=== PATIENT | male | born 1955 | race Caucasian/White ===

== ENCOUNTER 2019-01-08 05:09 | Day surgery (SDC) | payer OTHER ==
[~2019-01-08] VITALS: Ht 177.8 cm; Wt 74.1 kg
--- NOTE | ~2019-01-08 | OP ---
PATIENT NAME: EDDI OROZCO MEDICAL RECORD: [id number] :53 LOCATION:D.FORMERLY [facility] ADMISSION DATE: SURGEON: ELIESER VALENTINO MD DATE OF OPERATION: 01/08/2019 PREOPERATIVE DIAGNOSES: 1. Symptomatic ventral hernia. 2. Hepatitis C. 3. History of ascites. 4. History of paracenteses. 5. Esophageal varices by EGD with worrisome sign such as suzette and red signs. 6. Grade IV esophageal varices. 7. Recent hematemesis. POSTOPERATIVE DIAGNOSES: 1. Incarcerated symptomatic ventral hernia. 2. History of hepatitis C. 3. History of ascites. 4. Recent hematemesis. 5. Recent history of an EGD which revealed worrisome signs such as suzette and red signs. PROCEDURES: 1. Open incarcerated ventral hernia repair without mesh. 2. EGD with banding of esophageal varices with 9 bands. SURGEON: Elieser Valentino MD ADMISSIONS OFFICER: None. BLOOD LOSS: Minimal. ANESTHESIA: General. COMPLICATIONS: None. The risks, possible complications and alternatives to the procedure were explained to the patient. He elects to proceed. The discussion specifically included, but was not limited to, bleeding requiring emergency reoperation, infection, variceal bleeding, leakage of ascites from the herniorrhaphy. This was a qrrz-suow-wxral type of repair. OPERATIVE COURSE: The patient was conveyed to the operating room electively on 01/08/2019. General anesthesia was induced by the anesthesia staff. The abdomen was sterilely prepped and draped. I incised through the umbilical skin. I had to remove some of the umbilical skin to allow for a stable skin closure at the end of the procedure. There was incarcerated omentum. This was released with the electrocautery. I then sharply cleaned connective tissue from around the hernia defect. Utilizing a zkru-jjjw-xpdks type repair with 0 Surgidac sutures, I performed the herniorrhaphy with 2 of these sutures. I then overran the suture line with a running horizontal mattress 0 Vicryl suture. The umbilical skin was approximated with interrupted 3-0 Vicryls for the deep dermis as well as interrupted 3-0 Vicryl Cameron for the skin. A sterile dressing was then applied. OPERATIVE REPORT [id number] EDDI OROZCO Attention was then turned to the endoscopic procedure. A bite block was inserted. A gastroscope was inserted into the mouth. It was advanced easily into the hypopharynx. The esophagus was easily intubated as were the stomach and duodenum. Upon withdrawal, retroflexed and angulus views were obtained. I then slowly withdrew the endoscope. I then loaded an endoscopic banding device. I advanced it down the esophagus. The more worrisome varices were then banded, a total of 6 of the 7 bands were stable on varices and 1 band was lost. I then withdrew the gastroscope, another band was applied. I intubated the esophagus again. Three more bands were placed. There was very little bleeding. The endoscope was then withdrawn under direct vision. I want to keep the patient in the hospital overnight to watch for bleeding. TRANSINT:[id number] Voice Confirmation ID: [id number] DOCUMENT ID: [id number] ELIESER VALENTINO MD CC: SASHA RUBIO MD, ELIESER AWAN MD, MUKESH CINTRON MD and [id number] L DICTATION DATE: 01/08/19 1108 CORPORATE SERVICES MANAGER: 01/08/19 1207 [facility] 01/09/19 [id number] [place] [address]
[2019-01-08] MEDS ORDERED: ALDACTONE50 MG PO (05:44)
[2019-01-08] MEDS ORDERED: OMEPRAZOLE40 MG PO (05:45)
[2019-01-08 05:46] VITALS: BP 111/63; BMI 23.7
[2019-01-08 05:59] LABS: BASOPHILS 0.4 % (0-2); EOSINOPHILS 5.5 % (0-7); HEMATOCRIT 28.1 % (42.0-54.0); HEMOGLOBIN 8.7 g/dL (13.5-17.5); LYMPHOCYTES 14.8 % (15-50); MCH 20.8 pg (26.0-34.0); MCV 67.2 fL (80.0-100.0); MONOCYTES 12.2 % (2-11); NEUTROPHILS 67.1 % (40-80); PLATELET COUNT 58 10x3/uL (130-400); RBC 4.18 10x6/uL (4.20-6.10); RDW 19.2 % (11.5-14.5); WBC 2.7 10x3/uL (4.8-10.8)
[2019-01-08 06:04] LABS: APTT 36.6 SECONDS (22.8-39.4); INR 1.34 (0.85-1.17)
[2019-01-08 06:11] LABS: ALBUMIN 3.2 g/dL (3.4-5.0); ALKALINE PHOSPHATASE 213 U/L (46-116); ALT (SGPT) 29 U/L (10-68); BILIRUBIN - TOTAL 0.28 mg/dL (0.2-1.3); CALC OSMOLALITY 280 mosm/kg (275-300); CALCIUM 7.8 mg/dL (8.5-10.1); CARBON DIOXIDE 23.2 mmol/L (21.0-32.0); CHLORIDE - SERUM 107 mmol/L (98-107); CREATININE - SERUM 0.9 mg/dL (0.6-1.3); GLUCOSE 106 mg/dL (74-106); POTASSIUM - SERUM 3.7 mmol/L (3.5-5.1); PROTEIN - SERUM 8.1 g/dL (6.4-8.2); SODIUM 141 mmol/L (136-145); UREA NITROGEN 13 mg/dL (7-18); eGFR NON AFRICAN AMERICAN 90 mL/min (90-120)
[2019-01-08 08:50] LABS: PLATELET ESTIMATE DECREASED
[2019-01-08 08:51] LABS: HYPOCHROMASIA OCC
--- NOTE | 2019-01-08 12:01 | NUR ---
I NOTIFIED CARLTON CRUZ RN AT 1115 REGARDING NEEDING AN OBSERVATION BED. PATIENT WILL BE ADMITTED FOR OVERNIGHT OBSERVATION PER DR VALENTINO.
--- NOTE | 2019-01-08 12:03 | NUR ---
AT 1123 NOTIFIED BY CARLTON CRUZ RN OF PATIENT'S ROOM NUMBER #[id number]. WILL COTONUE TO MONITOR.
--- NOTE | 2019-01-08 12:04 | NUR ---
AT 115O SPOKE WITH LESA RN MED/SURG NURSE AND GAVE HER REPORT. AT THE END OF REPORT SHE ADVISED ME THAT THE ROOM WAS NO READY AND THAT EVS WAS CLEANING IT. I THEN PLACED PATIENT IN PHASE 2 IN PACU. WILL CONTINUE TO MONITOR.
--- NOTE | 2019-01-08 12:06 | NUR ---
AT 1155 CALLED DAYRON WILKINS GLAZE GRINDER AND INFORMED HIM OF THE STAT CLEAN I NEEDED ON ROOM 2203. HE INFORMED ME THAT DYLAN, LEARNING SUPPORT SPECIALIST JUST CONTACTED HIM AND INFORMED HIM THAT SHE NEEDED A STAT CLEAN ON ROOM 2203. INFORMED CARLTON CRUZ RN OF THE ABOVE. WILL CONTINUE TO MONITOR PATIENT IN PACU.
[2019-01-08 12:43] VITALS: BP 117/63
[2019-01-08 14:30] VITALS: Ht 177.8 cm; Wt 74.1 kg
[2019-01-08 20:00] VITALS: BP 116/53
[2019-01-08 23:35] VITALS: BP 118/60
[2019-01-09 03:00] VITALS: BP 132/56
[2019-01-09 06:56] LABS: ALBUMIN 3.1 g/dL (3.4-5.0); ALKALINE PHOSPHATASE 201 U/L (46-116); ALT (SGPT) 24 U/L (10-68); BILIRUBIN - TOTAL 0.52 mg/dL (0.2-1.3); CALC OSMOLALITY 276 mosm/kg (275-300); CALCIUM 7.4 mg/dL (8.5-10.1); CARBON DIOXIDE 23.1 mmol/L (21.0-32.0); CHLORIDE - SERUM 104 mmol/L (98-107); GLUCOSE 96 mg/dL (74-106); PHOSPHOROUS 3.6 mg/dL (2.5-4.9); PROTEIN - SERUM 7.7 g/dL (6.4-8.2); SODIUM 138 mmol/L (136-145); TROPONIN-I 0.021 ng/mL (0.000-0.060); UREA NITROGEN 14 mg/dL (7-18); eGFR NON AFRICAN AMERICAN 80 mL/min (90-120)
[2019-01-09 07:01] LABS: BASOPHILS 0.6 % (0-2); EOSINOPHILS 2.8 % (0-7); HEMOGLOBIN 8.5 g/dL (13.5-17.5); IMMATURE GRANULOCYTES 0.3 % (0-5); LYMPHOCYTES 9.6 % (15-50); MCH 20.9 pg (26.0-34.0); MCHC 30.4 g/dL (31.0-37.0); MCV 68.8 fL (80.0-100.0); MONOCYTES 10.5 % (2-11); NEUTROPHILS 76.2 % (40-80); RBC 4.07 10x6/uL (4.20-6.10); RDW 19.5 % (11.5-14.5)
[2019-01-09 07:03] LABS: PLATELET COUNT 71 10x3/uL (130-400); WBC 3.5 10x3/uL (4.8-10.8)
--- NOTE | 2019-01-09 08:13 | NUR ---
PT ALERT X 4. BREATH SOUNDS CLEAR BILAT. ABDOMEN DISTENDED AND FIRM, BOWEL SOUNDS HYPOACTIVE. IV TO LEFT FOREARM, PATENT, DRESSING CLEAN DRY AND INTACT. PT REPORTING PAIN OF 9/10, COMMUNITY OUTREACH WORKER IN PLACE, WILL MONITOR. GUARD AT BEDSIDE. BED LOW, CALL LIGHT IN REACH. NO OTHER NEEDS AT THIS TIME.
[2019-01-09 08:56] LABS: PLATELET ESTIMATE DECREASED; PLATELET MORPHOLOGY NORMAL PLT MORPH
[2019-01-09 10:59] VITALS: BP 148/62
[2019-01-09] MEDS ORDERED: COLACE100 MG PO (12:35)
[2019-01-09] MEDS ORDERED: MIRALAX17 GM PO (12:35)
[2019-01-09] MEDS ORDERED: DILAUDID2 MG PO (12:47)
[2019-01-09 13:40] VITALS: BP 138/77
--- NOTE | 2019-01-09 18:16 | NUR ---
DISCHARGE PAPERWORK SIGNED, ALL QUESTIONS ANSWERED, GIVEN TO GUARD ON DUTY. IV TO RIGHT FOREARM DC'D, TIP INTACT. ESCORTED OUT BY WHEELCHAIR.
== END 2019-01-09 18:32 | disposition home or self-care (01) ==
LOC: D.OPS 05:09 → D.MS 11:41 → D.OPS 01-09 18:32
PROVIDERS: Anesthesiology; ATTEND Surgery
DX: K43.6 Other and unspecified ventral hernia with obstruction, without gangrene (principal); I85.01 Esophageal varices with bleeding; Z86.19 Personal history of other infectious and parasitic diseases; Z01.812 Encounter for preprocedural laboratory examination